=== PATIENT | female | born 1995 | race Caucasian/White ===

== ENCOUNTER 2022-06-28 22:05 | Emergency (ER) | payer BC, OTHER ==
--- NOTE | 2022-06-28 23:15 | ERPHSYRPT ---
- History of Present Illness Time Seen by Provider: 06/28/22 23:11 Historian: patient, family Exam Limitations: no limitations Patient Subjective Stated Complaint: Pt reports "about an hour ago when I was laying down I started getting chest tightness like my heart was going fast, it was getting hard to breath, and my body just kind of feels numb." Triage Nursing Assessment: Pt alert and oriented x3. No apparent respiratory distress, pt is talkative/pleasant/calm. Skin warm/dry/pale. Ambulated to ED cot without difficulty. Accompanied by her mother. Lung sounds clear throughout. S1 and S2 auscultated. Physician History: Hx confirmed by independent interview with Mom. Pt is 26 yr old female. Heart score <3 1 pt each for symptoms, and fam Hx. zero for normal EKG and Neg trop. No prior cardiac, hptn ( take propranolol for migraine not hptn. No hx DVT - Percs out for PE - no recent hosp or surgery normal HR. Chest clear with mid systolic click. Abd soft nontender without peritoneal signs or masses. Pt reports hx of possibly eating bad food and now has N and V no diaphoresis. and feels like starting diarrhea. discussed and ordered tests - EKG, CXR, CBC, CMP, Trop, UA and pt agrees after discussion of risks benefits and results discussed. Timing/Duration: today, hour(s) Activities at Onset: none Quality: cramping, fullness, pressure, tightness Location: substernal, central, epigastric Chest Pain Radiation: no radiation Severity of Pain-Max: moderate Severity of Pain-Current: moderate Modifying Factors: Improves With: eating Associated Symptoms: nausea, vomiting Prior Chest Pain/Cardiac Workup: no prior chest pain, no prior cardiac workup Nitro Today/Relief: no nitro taken today Aspirin Treatment Today: 81 mg x 4, provided by ED Allergies/Adverse Reactions: No Known Drug Allergies Allergy (Unverified 06/28/22 22:06) Home Medications: Baclofen See Rx Instructions .ROUTE .COMPLEX 06/28/22 [History] Miscellaneous Medication Order 1 tab PO DAILY 06/28/22 [History] Propranolol HCl 60 mg PO DAILY 06/28/22 [History] Hx Tetanus, Diphtheria Vaccination/Date Given: No Hx Influenza Vaccination/Date Given: No Hx Pneumococcal Vaccination/Date Given: No Travel Risk - International Travel Have you traveled outside of the country in past 3 weeks: No - Coronavirus Screening Are you exhibiting any of the following symptoms?: No Close contact with a COVID-19 positive Pt in past 14-21 Days: No - Vaccine Status Have you recieved a Covid-19 vaccination: Yes Social Welfare Administrator: [employer] - Review of Systems Constitutional: No Fever, No Chills Eyes: No Symptoms Ears, Nose, & Throat: No Symptoms Respiratory: No Cough, No Dyspnea Cardiac: Chest Pain, No Edema, No Syncope Abdominal/Gastrointestinal: Nausea, Vomiting, Diarrhea, No Abdominal Pain Genitourinary Symptoms: No Dysuria Musculoskeletal: No Back Pain, No Neck Pain Skin: No Rash Neurological: No Dizziness, No Focal Weakness, No Sensory Changes Psychological: No Symptoms Endocrine: No Symptoms Hematologic/Lymphatic: No Symptoms Immunological/Allergic: No Symptoms All Other Systems: Reviewed and Negative - Past Medical History Pertinent Past Medical History: Yes Neurological History: Migraines Other Medical History: Chiari malformation - Past Surgical History Past Surgical History: Yes Other Surgical History: wisdom teeth removal - Social History Smoking Status: Never smoker Exposure to second hand smoke: No Drug Use: none Patient Lives Alone: No - Female History Hx Last Menstrual Period: february 2022 Hx Now: No - Nursing Vital Signs Nursing Vital Signs: Initial Vital Signs Temperature 98.3 F 06/28/22 22:06 Pulse Rate 61 06/28/22 22:06 Respiratory Rate 15 06/28/22 22:06 Blood Pressure 128/83 06/28/22 22:06 O2 Sat by Pulse Oximetry 99 06/28/22 22:06 Pain Scale Pain Intensity 2 - Physical Exam General Appearance: no apparent distress, alert Eye Exam: PERRL/EOMI, eyes nml inspection Ears, Nose, Throat Exam: normal ENT inspection, moist mucous membranes Neck Exam: normal inspection, non-tender, supple, full range of motion Respiratory Exam: normal breath sounds, lungs clear, No respiratory distress Cardiovascular Exam: regular rate/rhythm, normal heart sounds, other (mid systolic click) Gastrointestinal/Abdomen Exam: soft, No tenderness, No mass Pelvic Exam: deferred Rectal Exam: deferred Back Exam: normal inspection, No CVA tenderness, No vertebral tenderness Extremity Exam: normal inspection, normal range of motion Neurologic Exam: alert, oriented x 3, cooperative, normal mood/affect, sensation nml, No motor deficits Skin Exam: normal color, warm, dry SpO2 Interpretation: normal SpO2: 99 O2 Delivery: Room Air - Course Nursing assessment & vital signs reviewed: Yes EKG Interpreted by Me: Sinus Rhythm, NORMAL AXIS, NORMAL INTERVALS, NORMAL QRS, NORMAL ST-T - Radiology Exams Chest X-ray Interpretation: Reviewed by me, No Pneumothorax, No Infiltrates, Other (calcified granulomata) Ordered Tests: Active Orders 24 hr Category Date Time Status EKG-ER Only STAT Care 06/28/22 23:18 Active IV Insertion STAT Care 06/28/22 23:18 Active CHEST 1 VIEW (PORTABLE) Stat Exams 06/28/22 23:18 Taken AMYLASE Stat Lab 06/28/22 23:20 Completed CBC W DIFF Stat Lab 06/28/22 23:20 Completed CMP Stat Lab 06/28/22 23:20 Completed HCG QUALITATIVE,SERUM Stat Lab 06/28/22 23:20 Completed LIPASE Stat Lab 06/28/22 23:20 Completed Lactic Acid Stat Lab 06/28/22 23:30 Completed TROPONIN Q4H Lab 06/28/22 23:20 Completed TROPONIN Q4H Lab 06/29/22 03:30 Ordered TROPONIN Q4H Lab 06/29/22 07:30 Ordered UA W/RFX UR CULTURE Stat Lab 06/28/22 23:24 Completed Medication Summary Discontinued Medications Generic Name Dose Route Start Last Admin Trade Name Freq PRN Reason Stop Dose Admin Famotidine 20 mg 06/28/22 23:18 06/28/22 23:30 Famotidine 20 Mg/1 Vial IV 06/28/22 23:19 20 mg STAT ONE Administration Famotidine Confirm 06/28/22 23:27 Famotidine 20 Mg/1 Vial Administered 06/28/22 23:28 Dose 20 mg IV .STK-MED ONE Sodium Chloride 1,000 mls @ 999 mls/hr 06/28/22 23:18 06/29/22 00:44 Sodium Chloride 0.9% 1000 Ml IV 06/29/22 00:18 Infused .Q1H1M STA Infusion Sodium Chloride Confirm 06/28/22 23:27 Sodium Chloride 0.9% 1000 Ml Administered 06/28/22 23:28 Dose 1,000 mls @ ud .ROUTE .STK-MED ONE Ondansetron HCl 4 mg 06/28/22 23:18 06/28/22 23:30 Ondansetron Hcl 4 Mg/2 Ml Vial IV 06/28/22 23:19 4 mg STAT ONE Administration Ondansetron HCl Confirm 06/28/22 23:27 Ondansetron Hcl 4 Mg/2 Ml Vial Administered 06/28/22 23:28 Dose 4 mg .ROUTE .STK-MED ONE Pantoprazole Sodium 40 mg 06/28/22 23:18 06/28/22 23:30 Pantoprazole 40 Mg Vial IV 06/28/22 23:19 40 mg STAT ONE Administration Pantoprazole Sodium Confirm 06/28/22 23:27 Pantoprazole 40 Mg Vial Administered 06/28/22 23:28 Dose 40 mg IV .STK-MED ONE Lab/Rad Data: Laboratory Result Diagrams 06/28/22 23:20 06/28/22 23:20 Laboratory Results 06/28/22 06/28/22 06/28/22 Range/Units 23:30 23:24 23:20 WBC (4.0-10.5) x10^3/uL RBC (4.1-5.4) x10^6/uL Hgb (12.0-16.0) g/dL Hct (35-47) % MCV (78-100) fL MCH (26-32) pg MCHC (32-36) g/dL RDW (11.5-14.0) % Plt Count (150-450) x10^3/uL MPV (7.5-11.0) fL Gran % (36.0-66.0) % Immature Gran % (Auto) (0.00-0.4) % Nucleat RBC Rel Count (0.00-0.1) % Eos # (Auto) (0-0.5) x10^3/uL Immature Gran # (Auto) (0.00-0.03) x10^3u/L Absolute Lymphs (auto) (1.0-4.6) x10^3/uL Absolute Monos (auto) (0.0-1.3) x10^3/uL Absolute Nucleated RBC (0.00-0.01) x10^3u/L Lymphocytes % (24.0-44.0) % Monocytes % (0.0-12.0) % Eosinophils % (0.00-5.0) % Basophils % (0.0-0.4) % Absolute Granulocytes (1.4-6.9) x10^3/uL Basophils # (0-0.4) x10^3/uL Sodium (137-145) mmol/L Potassium (3.5-5.1) mmol/L Chloride (98-107) mmol/L Carbon Dioxide (22-30) mmol/L Anion Gap (5-15) MEQ/L BUN (7-17) mg/dL Creatinine (0.52-1.04) mg/dL Estimated GFR ML/MIN Glucose (74-106) mg/dL Lactic Acid 1.1 (0.4-2.0) Calcium (8.4-10.2) mg/dL Total Bilirubin (0.2-1.3) mg/dL AST (14-36) U/L ALT (0-35) U/L Alkaline Phosphatase (38-126) U/L Troponin I (0.000-0.034) ng/mL Serum Total Protein (6.3-8.2) g/dL Albumin (3.5-5.0) g/dL Amylase (30-110) U/L Lipase (23-300) U/L Serum , Qual NEGATIVE (Negative) Urine Color Yellow (Yellow) Urine Appearance Clear (Clear) Urine pH 6.0 (4.6-8.0) Ur Specific Mcewen >=1.030 A (1.005-1.030) Urine Protein Trace A (Negative) Urine Glucose (UA) Negative (Negative) mg/dL Urine Ketones Trace A (Negative) Urine Blood Negative (Negative) Urine Nitrite Negative (Negative) Urine Bilirubin Negative (Negative) Urine Urobilinogen 1.0 A (0.2) mg/dL Ur Leukocyte Esterase Negative (Negative) U Hyaline Cast (Auto) NONE SEEN (0-2) /LPF Urine Microscopic RBC 0-2 (0-5) /HPF Urine Microscopic WBC 0-2 (0-5) /HPF Ur Epithelial Cells None Seen (None Seen) /HPF Urine Bacteria None Seen (None Seen) /HPF Urine Culture Reflexed NO (NO) 06/28/22 06/28/22 06/28/22 Range/Units 23:20 23:20 23:20 WBC 7.9 (4.0-10.5) x10^3/uL RBC 3.90 L (4.1-5.4) x10^6/uL Hgb 12.2 (12.0-16.0) g/dL Hct 36.6 (35-47) % MCV 93.8 (78-100) fL MCH 31.3 (26-32) pg MCHC 33.3 (32-36) g/dL RDW 12.6 (11.5-14.0) % Plt Count 307 (150-450) x10^3/uL MPV 10.2 (7.5-11.0) fL Gran % 35.2 L (36.0-66.0) % Immature Gran % (Auto) 0.1 (0.00-0.4) % Nucleat RBC Rel Count 0.0 (0.00-0.1) % Eos # (Auto) 0.64 H (0-0.5) x10^3/uL Immature Gran # (Auto) 0.01 (0.00-0.03) x10^3u/L Absolute Lymphs (auto) 3.83 (1.0-4.6) x10^3/uL Absolute Monos (auto) 0.56 (0.0-1.3) x10^3/uL Absolute Nucleated RBC 0.00 (0.00-0.01) x10^3u/L Lymphocytes % 48.6 H (24.0-44.0) % Monocytes % 7.1 (0.0-12.0) % Eosinophils % 8.1 H (0.00-5.0) % Basophils % 0.9 (0.0-0.4) % Absolute Granulocytes 2.77 (1.4-6.9) x10^3/uL Basophils # 0.07 (0-0.4) x10^3/uL Sodium 139 (137-145) mmol/L Potassium 3.9 (3.5-5.1) mmol/L Chloride 108 H (98-107) mmol/L Carbon Dioxide 25 (22-30) mmol/L Anion Gap 10.3 (5-15) MEQ/L BUN 10 (7-17) mg/dL Creatinine 0.65 (0.52-1.04) mg/dL Estimated GFR > 60.0 ML/MIN Glucose 113 H (74-106) mg/dL Lactic Acid (0.4-2.0) Calcium 8.9 (8.4-10.2) mg/dL Total Bilirubin 0.40 (0.2-1.3) mg/dL AST 25 (14-36) U/L ALT 24 (0-35) U/L Alkaline Phosphatase 46 (38-126) U/L Troponin I < 0.012 (0.000-0.034) ng/mL Serum Total Protein 6.9 (6.3-8.2) g/dL Albumin 3.9 (3.5-5.0) g/dL Amylase 92 (30-110) U/L Lipase 133 (23-300) U/L Serum , Qual (Negative) Urine Color (Yellow) Urine Appearance (Clear) Urine pH (4.6-8.0) Ur Specific Mcewen (1.005-1.030) Urine Protein (Negative) Urine Glucose (UA) (Negative) mg/dL Urine Ketones (Negative) Urine Blood (Negative) Urine Nitrite (Negative) Urine Bilirubin (Negative) Urine Urobilinogen (0.2) mg/dL Ur Leukocyte Esterase (Negative) U Hyaline Cast (Auto) (0-2) /LPF Urine Microscopic RBC (0-5) /HPF Urine Microscopic WBC (0-5) /HPF Ur Epithelial Cells (None Seen) /HPF Urine Bacteria (None Seen) /HPF Urine Culture Reflexed (NO) - Progress Progress: improved, re-examined Air Movement: good Progress Note: 06/29/22 01:08 chest pain resolved. Still having some GI gurgling now which probably explains the event best. discussed with pt results and that there still can be a cardiac condition or other undetected pathology including GI or vascular evolving and therefore the need to followup with her Dr. richard jones w/u and Tx as indicated. She and mom are most comfortable with this plan rather than any further w/u or obs in hospital at this time and that is most reasonable given the Hx and results and exam findings. Blood Culture(s) Obtained: No Antibiotics given: No Counseled pt/family regarding: lab results, diagnosis, need for follow-up, rad results Medical Desision Making - Independent Historian Additional History obtained from: Mother - Discussion of managment Reviewed:: Test results, Need for additional workup Agreed on:: Treatment plan, need for follow-up - Diagnostic Testing Diagnostic test were ordered, analyzed, and reviewed by me: Yes Radiological Interpretation: Reviewed by me - Risk of complications Low Risk: Low risk of morbidity from additional dx testing or treatment - Departure Departure Disposition: Home Clinical Impression: Chest pain - resolved, Gastro-intestinal symptoms with vomiting, Mid-systolic click, lung nodules or granulomas Condition: Good Critical Care Time: No Referrals: MAYA KING [Primary Care Provider] - Follow up/PCP as directed Instructions: Chest Pain (DC), Diarrhea in Adolescents and Adults, Nausea and Vomiting, Adult (DC), Food Poisoning (DC), Mitral Valve Prolapse Additional Instructions: We did not yet determine a precise cause for the chest pain or symptoms. Although the findings fit a gastrointestinal disturbance, there still could be other conditions developing which could log turner to be more serious, so follow- up with your DrTeo and return meantime if not improving, further chest pain or other concerns. You do have a type of mid systolic click with can be mitral valve prolapse to followup with your Dr. and is usually not a concern for most after workup. You have some spots on the lung which are probably benign granulomas but should also be followup with the final x-ray report with your Dr. Prescriptions: Ondansetron ODT 4 MG [Zofran Odt 4 mg] 4 mg PO Q6H PRN PRN #10 tablet PRN Reason: Nausea
[2022-06-28] MEDS ORDERED: Zofran 4 MG/2 ML VIAL IV ONE (23:18)
[2022-06-28] MEDS ORDERED: Sodium Chloride 0.9% 1000 ML 1,000 ML IV STA (23:18)
[2022-06-28] MEDS ORDERED: Pepcid 20 MG VIAL IV ONE ×2 (23:18→23:27)
[2022-06-28] MEDS ORDERED: PROTONIX 40 MG IV IV ONE ×2 (23:18→23:27)
[2022-06-28] MEDS ORDERED: Zofran 4 MG/2 ML VIAL ONE (23:27)
[2022-06-28] MEDS ORDERED: Sodium Chloride 0.9% 1000 ML 1,000 ML ONE (23:27)
[2022-06-28 23:30] LABS: Absolute Neutrophil Ct (ANC) 2.77 x10^3/uL (1.4-6.9); BASOPHIL % 0.9 % (0.0-0.4); Basophil (Absolute #) 0.07 x10^3/uL (0-0.4); Eosinophil % 8.1 % (0.00-5.0); Eosinophil (Absolute #) 0.64 x10^3/uL (0-0.5); Hematocrit 36.6 % (35-47); Hemoglobin 12.2 g/dL (12.0-16.0); IMMATURE GRAN # 0.01 x10^3u/L (0.00-0.03); IMMATURE GRAN % 0.1 % (0.00-0.4); Lymphocyte (Absolute #) 3.83 x10^3/uL (1.0-4.6); Lymphocytes % 48.6 % (24.0-44.0); Mean Cell Volume 93.8 fL (78-100); Mean Corpuscular Hemoglobin 31.3 pg (26-32); Mean Corpuscular Hgb Concent. 33.3 g/dL (32-36); Mean Platelet Volume 10.2 fL (7.5-11.0); Monocyte (Absolute #) 0.56 x10^3/uL (0.0-1.3); Monocytes % 7.1 % (0.0-12.0); Neutrophil % 35.2 % (36.0-66.0); Platelet Count 307 x10^3/uL (150-450); Red Cell Distribution Width 12.6 % (11.5-14.0); White Blood Count 7.9 x10^3/uL (4.0-10.5)
[2022-06-28 23:36] LABS: Appearance Clear (Clear); Bacteria None Seen /HPF (None Seen); Bilirubin Negative (Negative); Blood Negative (Negative); Epithelial Cells None Seen /HPF (None Seen); Glucose, Urine Negative (Negative); Hyaline Casts NONE SEEN /LPF (0-2); Ketones Trace (Negative); Leukocyte Esterase Negative (Negative); Nitrite Negative (Negative); Protein,Urine Dip Trace (Negative); RBC 0-2 /HPF (0-5); Specific Gravity >=1.030 (1.005-1.030); WBC 0-2 /HPF (0-5)
[2022-06-28 23:42] LABS: ADD URINE CULTURE? NO (NO)
[2022-06-28 23:44] LABS: ALBUMIN 3.9 g/dL (3.5-5.0); ALKALINE PHOSPHATASE 46 U/L (38-126); AMYLASE 92 U/L (30-110); ANION GAP 10.3 MEQ/L (5-15); BLOOD UREA NITROGEN 10 mg/dL (7-17); CHLORIDE 108 mmol/L (98-107); Calcium 8.9 mg/dL (8.4-10.2); Carbon Dioxide 25 mmol/L (22-30); Creatinine 1 0.65 mg/dL (0.52-1.04); EST GLOMERULAR FILTRATION RATE > 60.0 ML/MIN; Glucose 113 mg/dL (74-106); LIPASE 133 U/L (23-300); Potassium 3.9 mmol/L (3.5-5.1); SGOT/AST 25 U/L (14-36); SGPT/ALT 24 U/L (0-35); SODIUM 139 mmol/L (137-145); Total Protein 6.9 g/dL (6.3-8.2)
[2022-06-29 01:03] VITALS: BP 122/84; PULSE 64
[2022-06-29 01:13] VITALS: O2SAT 99
--- NOTE | 2022-06-29 08:43 | XRAY ---
Indication: Chest pain. Comparison: None Portable chest demonstrates normal heart, lungs, and bony thorax.
== END 2022-06-29 01:43 | disposition home or self-care (01) ==
LOC: ED 22:05
DX: R11.2 Nausea with vomiting, unspecified (principal); R07.9 Chest pain, unspecified; R01.2 Other cardiac sounds; R91.8 Other nonspecific abnormal finding of lung field; Z79.899 Other long term (current) drug therapy
CPT/HCPCS: 36000; 36415; 71045; 80053; 81001; 82150; 83605; 83690; 84484; 84703; 85025; 93005; 96374; 96375; 99284; J2405

== ENCOUNTER 2023-10-12 10:21 | Emergency (ER) | payer BC ==
[2023-10-12 10:36] VITALS: TEMP 98.4
--- NOTE | 2023-10-12 10:56 | ERPHSYRPT ---
- History of Present Illness Time Seen by Provider: 10/12/23 10:40 Source: patient Exam Limitations: no limitations Patient Subjective Stated Complaint: Pt c/o of chest pain, SOB, sharp stabbing pains in her feet and hands and neck all last night, pt thought that she might have been having a panic attack, today pt states that she has some pain in her medial chest, some SOB, some pain in her hands, and blurry vision Triage Nursing Assessment: Pt brought to the ER by her mother, vitals wnl, rates chest and hand pain as 5/10, pulses normal, skin n/w/d, walked into the ER with a stable gait and no assistance, no difficulty breathing noted, hx of panic attacks, doesn't appear to be in any distress, Physician History: Since about 14.5 hours ago pt has had a fast heart rate, chest pain, shortness of air, pain all over, intermittent nausea and a mild intermittent frontal headache. LBM was yesterday without blood. Pt also c/o a sore throat for the past few weeks. Allergies/Adverse Reactions: amitriptyline Allergy (Verified 10/12/23 10:36) Home Medications: Baclofen See Rx Instructions .ROUTE .COMPLEX 06/28/22 [History] Miscellaneous Medication Order 1 tab PO DAILY 06/28/22 [History] Propranolol HCl 60 mg PO DAILY 06/28/22 [History] Hx Tetanus, Diphtheria Vaccination/Date Given: No Hx Influenza Vaccination/Date Given: No Hx Pneumococcal Vaccination/Date Given: No Travel Risk - International Travel Have you traveled outside of the country in past 3 weeks: No - Emerging Infectious Disease Are you exhibiting symptoms associated with any current EIDs: No - Review of Systems Constitutional: No Fever, No Chills Ears, Nose, & Throat: Throat Pain Respiratory: Dyspnea, No Cough Cardiac: Chest Pain Abdominal/Gastrointestinal: Nausea, No Abdominal Pain, No Vomiting, No Diarrhea Genitourinary Symptoms: No Dysuria Neurological: Headache - Past Medical History Pertinent Past Medical History: Yes Neurological History: Migraines Other Medical History: Chiari malformation - Past Surgical History Past Surgical History: Yes Other Surgical History: wisdom teeth removal - Female History Hx Last Menstrual Period: 2 years ago Hx Now: No - Social History Smoking Status: Never smoker Exposure to second hand smoke: No Drug Use: marijuana Patient Lives Alone: No - Social Determinants of Health Will the patient participate in the screening: Yes Do you worry about a steady place to live?: No Do you have any problems with any of the following?: No known problems In the past 12 months,have you had to go without utilities?: No Transportation Issues: No Has anyone in your support network made you feel unsafe?: No Have you or anyone in your house had to go without enough: No - Nursing Vital Signs Nursing Vital Signs: Initial Vital Signs Temperature 98.4 F 10/12/23 10:28 Pulse Rate 64 10/12/23 10:28 Respiratory Rate 15 10/12/23 10:28 Blood Pressure 124/90 10/12/23 10:28 O2 Sat by Pulse Oximetry 98 10/12/23 10:28 Pain Scale Pain Intensity 5 - Physical Exam General Appearance: alert Eye Exam: eyes nml inspection Ears, Nose, Throat Exam: hearing grossly normal, pharyngeal erythema (mild) Neck Exam: normal inspection Respiratory Exam: lungs clear, airway intact Cardiovascular/Chest Exam: normal heart sounds Abdominal/Gastrointestinal Exam: normal bowel sounds Extremity Exam: No pedal edema Neurologic Exam: alert, cooperative Skin Exam: warm, dry SpO2 Interpretation: normal SpO2: 98 O2 Delivery: Room Air - Course Nursing assessment & vital signs reviewed: Yes EKG Interpreted by Me: RATE (64), Sinus Rhythm, NORMAL AXIS, Other (QTc = 409) - Radiology Exams Chest X-ray Interpretation: Discussed w/ radiologist (PA/lateral chest again demonstrates normal heart, lungs and bony thorax.) - CT Exams Chest CT Interpretation: Discussed w/radiologist (Normal CT chest PE exam.) Ordered Tests: Active Orders 24 hr Category Date Time Status EKG-ER Only STAT Care 10/12/23 10:52 Active IV Insertion STAT Care 10/12/23 10:52 Active CHEST 2 VIEWS (PA AND LAT) Stat Exams 10/12/23 10:53 Completed CHEST WITH CONTRAST [CT] Stat Exams 10/12/23 13:22 Completed AMYLASE Stat Lab 10/12/23 11:10 Completed CBC W DIFF Stat Lab 10/12/23 11:10 Completed CMP Stat Lab 10/12/23 11:10 Completed D-DIMER QUANTITATIVE Stat Lab 10/12/23 11:10 Completed HCG QUALITATIVE, SERUM Stat Lab 10/12/23 11:10 Completed LIPASE Stat Lab 10/12/23 11:10 Completed MAGNESIUM Stat Lab 10/12/23 11:10 Completed TROPONIN Q4H Lab 10/12/23 11:10 Completed TROPONIN Q4H Lab 10/12/23 14:30 Received TROPONIN Q4H Lab 10/12/23 19:00 Ordered UA W/RFX UR CULTURE Stat Lab 10/12/23 11:55 Completed Medication Summary Generic Name Dose Route Start Last Admin Trade Name [place] PRN Reason Stop Dose Admin Sodium Chloride 1,000 mls @ 100 mls/hr 10/12/23 11:00 10/12/23 11:03 Sodium Chloride 0.9% 1000 Ml IV 11/11/23 10:59 100 mls/hr .Q10H MARIBEL Administration Discontinued Medications Generic Name Dose Route Start Last Admin Trade Name Freq PRN Reason Stop Dose Admin Aspirin 324 mg 10/12/23 10:55 10/12/23 11:05 Aspirin 81 Mg Tab.Chew PO 10/12/23 10:56 324 mg STAT ONE Administration Aspirin Confirm 10/12/23 11:02 Aspirin 81 Mg Tab.Chew Administered 10/12/23 11:03 Dose 324 mg .ROUTE .STK-MED ONE Ondansetron HCl 4 mg 10/12/23 10:52 10/12/23 11:04 Ondansetron Hcl 4 Mg/2 Ml Vial IV 10/12/23 10:53 4 mg STAT ONE Administration Ondansetron HCl Confirm 10/12/23 11:02 Ondansetron Hcl 4 Mg/2 Ml Vial Administered 10/12/23 11:03 Dose 4 mg .ROUTE .STK-MED ONE Lab/Rad Data: Laboratory Result Diagrams 10/12/23 11:10 10/12/23 11:10 Laboratory Results 10/12/23 10/12/23 10/12/23 Range/Units 12:00 12:00 11:55 WBC (3.98-10.04) x10^3/uL RBC (3.93-5.22) x10^6/uL Hgb (11.2-15.7) g/dL Hct (34.1-44.9) % MCV (79.4-94.8) fL MCH (25.6-32.2) pg MCHC (32.2-35.5) g/dL RDW (11.7-14.4) % Plt Count (182-369) x10^3/uL MPV (9.4-12.3) fL Gran % (34.0-71.1) % Immature Gran % (Auto) (0.001-0.429) % Nucleat RBC Rel Count (0.00-0.2) % Eos # (Auto) (0.04-0.36) x10^3/uL Immature Gran # (Auto) (0.001-0.031) x10^3u/L Absolute Lymphs (auto) (1.18-3.74) x10^3/uL Absolute Monos (auto) (0.24-0.86) x10^3/uL Absolute Nucleated RBC (0.00-0.012) x10^3u/L Lymphocytes % (19.3-51.7) % Monocytes % (4.7-12.5) % Eosinophils % (0.7-5.8) % Basophils % (0.1-1.2) % Absolute Granulocytes (1.56-6.13) x10^3/uL Basophils # (0.01-0.08) x10^3/uL D-Dimer (0.0-0.50) mg/L Sodium (135-145) mmol/L Potassium (3.5-5.1) mmol/L Chloride (98-107) mmol/L Carbon Dioxide (22-30) mmol/L Anion Gap (5-15) MEQ/L BUN (7-17) mg/dL Creatinine (0.52-1.04) mg/dL Estimated GFR ML/MIN Glucose (74-106) mg/dL Calcium (8.4-10.2) mg/dL Magnesium (1.6-2.3) mg/dL Total Bilirubin (0.2-1.3) mg/dL AST (14-36) U/L ALT (0-35) U/L Alkaline Phosphatase (38-126) U/L Troponin I (0.000-0.033) ng/mL Serum Total Protein (6.3-8.2) g/dL Albumin (3.5-5.0) g/dL Amylase (30-110) U/L Lipase (23-300) U/L Serum HCG, Qual (NEGATIVE) Urine Color Yellow (Yellow) Urine Appearance Clear (Clear) Urine pH 7.0 (4.6-8.0) Ur Specific [place] 1.015 (1.005-1.030) Urine Protein Negative (Negative) Urine Glucose (UA) Negative (Negative) mg/dL Urine Ketones Negative (Negative) Urine Blood Negative (Negative) Urine Nitrite Negative (Negative) Urine Bilirubin Negative (Negative) Urine Urobilinogen 1.0 A (0.2) mg/dL Ur Leukocyte Esterase Negative (Negative) U Hyaline Cast (Auto) NONE SEEN (0-2) /LPF Urine Microscopic RBC 0-2 (0-5) /HPF Urine Microscopic WBC 0-2 (0-5) /HPF Ur Epithelial Cells None Seen (None Seen) /HPF Urine Bacteria None Seen (None Seen) /HPF Urine Culture Reflexed NO (NO) Influenza Type A Ag NEGATIVE (NEGATIVE) Influenza Type B Ag NEGATIVE (NEGATIVE) RSV (PCR) NEGATIVE (NEGATIVE) SARS-CoV-2 (PCR) NEGATIVE (NEGATIVE) Group A Strep Antibody NOT DETECTED (NEGATIVE) 10/12/23 10/12/23 10/12/23 Range/Units 11:10 11:10 11:10 WBC (3.98-10.04) x10^3/uL RBC (3.93-5.22) x10^6/uL Hgb (11.2-15.7) g/dL Hct (34.1-44.9) % MCV (79.4-94.8) fL MCH (25.6-32.2) pg MCHC (32.2-35.5) g/dL RDW (11.7-14.4) % Plt Count (182-369) x10^3/uL MPV (9.4-12.3) fL Gran % (34.0-71.1) % Immature Gran % (Auto) (0.001-0.429) % Nucleat RBC Rel Count (0.00-0.2) % Eos # (Auto) (0.04-0.36) x10^3/uL Immature Gran # (Auto) (0.001-0.031) x10^3u/L Absolute Lymphs (auto) (1.18-3.74) x10^3/uL Absolute Monos (auto) (0.24-0.86) x10^3/uL Absolute Nucleated RBC (0.00-0.012) x10^3u/L Lymphocytes % (19.3-51.7) % Monocytes % (4.7-12.5) % Eosinophils % (0.7-5.8) % Basophils % (0.1-1.2) % Absolute Granulocytes (1.56-6.13) x10^3/uL Basophils # (0.01-0.08) x10^3/uL D-Dimer 0.54 H (0.0-0.50) mg/L Sodium (135-145) mmol/L Potassium (3.5-5.1) mmol/L Chloride (98-107) mmol/L Carbon Dioxide (22-30) mmol/L Anion Gap (5-15) MEQ/L BUN (7-17) mg/dL Creatinine (0.52-1.04) mg/dL Estimated GFR ML/MIN Glucose (74-106) mg/dL Calcium (8.4-10.2) mg/dL Magnesium (1.6-2.3) mg/dL Total Bilirubin (0.2-1.3) mg/dL AST (14-36) U/L ALT (0-35) U/L Alkaline Phosphatase (38-126) U/L Troponin I < 0.012 (0.000-0.033) ng/mL Serum Total Protein (6.3-8.2) g/dL Albumin (3.5-5.0) g/dL Amylase (30-110) U/L Lipase (23-300) U/L Serum HCG, Qual NEGATIVE (NEGATIVE) Urine Color (Yellow) Urine Appearance (Clear) Urine pH (4.6-8.0) Ur Specific [place] (1.005-1.030) Urine Protein (Negative) Urine Glucose (UA) (Negative) mg/dL Urine Ketones (Negative) Urine Blood (Negative) Urine Nitrite (Negative) Urine Bilirubin (Negative) Urine Urobilinogen (0.2) mg/dL Ur Leukocyte Esterase (Negative) U Hyaline Cast (Auto) (0-2) /LPF Urine Microscopic RBC (0-5) /HPF Urine Microscopic WBC (0-5) /HPF Ur Epithelial Cells (None Seen) /HPF Urine Bacteria (None Seen) /HPF Urine Culture Reflexed (NO) Influenza Type A Ag (NEGATIVE) Influenza Type B Ag (NEGATIVE) RSV (PCR) (NEGATIVE) SARS-CoV-2 (PCR) (NEGATIVE) Group A Strep Antibody (NEGATIVE) 10/12/23 10/12/23 Range/Units 11:10 11:10 WBC 6.8 (3.98-10.04) x10^3/uL RBC 4.10 (3.93-5.22) x10^6/uL Hgb 12.6 (11.2-15.7) g/dL Hct 36.9 (34.1-44.9) % MCV 90.0 (79.4-94.8) fL MCH 30.7 (25.6-32.2) pg MCHC 34.1 (32.2-35.5) g/dL RDW 11.9 (11.7-14.4) % Plt Count 289 (182-369) x10^3/uL MPV 10.0 (9.4-12.3) fL Gran % 46.9 (34.0-71.1) % Immature Gran % (Auto) 0.1 (0.001-0.429) % Nucleat RBC Rel Count 0.0 (0.00-0.2) % Eos # (Auto) 0.56 H (0.04-0.36) x10^3/uL Immature Gran # (Auto) 0.01 (0.001-0.031) x10^3u/L Absolute Lymphs (auto) 2.44 (1.18-3.74) x10^3/uL Absolute Monos (auto) 0.52 (0.24-0.86) x10^3/uL Absolute Nucleated RBC 0.00 (0.00-0.012) x10^3u/L Lymphocytes % 36.0 (19.3-51.7) % Monocytes % 7.7 (4.7-12.5) % Eosinophils % 8.3 H (0.7-5.8) % Basophils % 1.0 (0.1-1.2) % Absolute Granulocytes 3.18 (1.56-6.13) x10^3/uL Basophils # 0.07 (0.01-0.08) x10^3/uL D-Dimer (0.0-0.50) mg/L Sodium 137 (135-145) mmol/L Potassium 4.1 (3.5-5.1) mmol/L Chloride 109 H (98-107) mmol/L Carbon Dioxide 21 L (22-30) mmol/L Anion Gap 12.0 (5-15) MEQ/L BUN 9 (7-17) mg/dL Creatinine 0.64 (0.52-1.04) mg/dL Estimated GFR 123.4 ML/MIN Glucose 92 (74-106) mg/dL Calcium 9.4 (8.4-10.2) mg/dL Magnesium 1.7 (1.6-2.3) mg/dL Total Bilirubin 0.90 (0.2-1.3) mg/dL AST 35 (14-36) U/L ALT 35 (0-35) U/L Alkaline Phosphatase 45 (38-126) U/L Troponin I (0.000-0.033) ng/mL Serum Total Protein 7.1 (6.3-8.2) g/dL Albumin 4.1 (3.5-5.0) g/dL Amylase 94 (30-110) U/L Lipase 83 (23-300) U/L Serum HCG, Qual (NEGATIVE) Urine Color (Yellow) Urine Appearance (Clear) Urine pH (4.6-8.0) Ur Specific [place] (1.005-1.030) Urine Protein (Negative) Urine Glucose (UA) (Negative) mg/dL Urine Ketones (Negative) Urine Blood (Negative) Urine Nitrite (Negative) Urine Bilirubin (Negative) Urine Urobilinogen (0.2) mg/dL Ur Leukocyte Esterase (Negative) U Hyaline Cast (Auto) (0-2) /LPF Urine Microscopic RBC (0-5) /HPF Urine Microscopic WBC (0-5) /HPF Ur Epithelial Cells (None Seen) /HPF Urine Bacteria (None Seen) /HPF Urine Culture Reflexed (NO) Influenza Type A Ag (NEGATIVE) Influenza Type B Ag (NEGATIVE) RSV (PCR) (NEGATIVE) SARS-CoV-2 (PCR) (NEGATIVE) Group A Strep Antibody (NEGATIVE) - Progress Progress: improved Counseled pt/family regarding: lab results, diagnosis, need for follow-up, rad results Medical Desision Making - Diagnostic Testing Diagnostic test were ordered, analyzed, and reviewed by me: Yes Radiological Interpretation: Discussed w/ radiologist - Departure Departure Disposition: Home Clinical Impression: Dyspnea, Chest pain Condition: Stable Critical Care Time: No Referrals: LORE KING NP [Primary Care Provider] - Follow up/PCP as directed Instructions: Chest Pain (DC) Additional Instructions: Follow up with private doctor tomorrow.
[2023-10-12] MEDS ORDERED: BABY ASPIRIN 81 MG CHEW ONE (11:02)
[2023-10-12] MEDS ORDERED: Sodium Chloride 0.9% 1000 ML 1,000 ML ONE (11:02)
[2023-10-12] MEDS ORDERED: Zofran 4 MG/2 ML VIAL ONE (11:02)
[2023-10-12] MEDS: Sodium Chloride 0.9% 1000 ML 1,000 ML IV SCH (11:03)
[2023-10-12] MEDS: Zofran 4 MG/2 ML VIAL IV ONE (11:04)
[2023-10-12] MEDS: BABY ASPIRIN 81 MG CHEW PO ONE (11:05)
[2023-10-12 11:15] LABS: Absolute Neutrophil Ct (ANC) 3.18 x10^3/uL (1.56-6.13); Basophil (Absolute #) 0.07 x10^3/uL (0.01-0.08); Eosinophil % 8.3 % (0.7-5.8); Eosinophil (Absolute #) 0.56 x10^3/uL (0.04-0.36); Hematocrit 36.9 % (34.1-44.9); Hemoglobin 12.6 g/dL (11.2-15.7); IMMATURE GRAN # 0.01 x10^3u/L (0.001-0.031); IMMATURE GRAN % 0.1 % (0.001-0.429); Lymphocyte (Absolute #) 2.44 x10^3/uL (1.18-3.74); Mean Corpuscular Hemoglobin 30.7 pg (25.6-32.2); Mean Corpuscular Hgb Concent. 34.1 g/dL (32.2-35.5); Monocyte (Absolute #) 0.52 x10^3/uL (0.24-0.86); Monocytes % 7.7 % (4.7-12.5); Neutrophil % 46.9 % (34.0-71.1); Platelet Count 289 x10^3/uL (182-369); Red Cell Distribution Width 11.9 % (11.7-14.4); White Blood Count 6.8 x10^3/uL (3.98-10.04)
[2023-10-12 11:27] LABS: ALBUMIN 4.1 g/dL (3.5-5.0); BILIRUBIN,TOTAL 0.9 mg/dL (0.2-1.3); Calcium 9.4 mg/dL (8.4-10.2); Creatinine 1 0.64 mg/dL (0.52-1.04); EST GLOMERULAR FILTRATION RATE 123.4 ML/MIN; MAGNESIUM 1.7 mg/dL (1.6-2.3); Potassium 4.1 mmol/L (3.5-5.1); Total Protein 7.1 g/dL (6.3-8.2)
[2023-10-12 11:47] LABS: HCG SERUM TEST NEGATIVE (NEGATIVE)
[2023-10-12 12:06] LABS: Appearance Clear (Clear); Bacteria None Seen /HPF (None Seen); Bilirubin Negative (Negative); Blood Negative (Negative); Epithelial Cells None Seen /HPF (None Seen); Glucose, Urine Negative (Negative); Hyaline Casts NONE SEEN /LPF (0-2); Ketones Negative (Negative); Leukocyte Esterase Negative (Negative); Nitrite Negative (Negative); Protein,Urine Dip Negative (Negative); RBC 0-2 /HPF (0-5); Specific Gravity 1.015 (1.005-1.030); WBC 0-2 /HPF (0-5)
[2023-10-12 12:10] LABS: ADD URINE CULTURE? NO (NO)
[2023-10-12 12:28] LABS: INFLUENZA A NEGATIVE (NEGATIVE); INFLUENZA B NEGATIVE (NEGATIVE); RESPIRATORY SYNCTIAL VIRUS NEGATIVE (NEGATIVE); SARS-CoV-2 Xpert Express NEGATIVE (NEGATIVE)
--- NOTE | 2023-10-12 12:28 | XRAY ---
Indication: Dyspnea. Comparison: June 28, 2022 PA/lateral chest again demonstrates normal heart, lungs, and bony thorax.
[2023-10-12 14:24] VITALS: BP 101/65; PULSE 77; RESP 15
--- NOTE | 2023-10-12 14:32 | XRAY ---
Indication: Chest pain. Elevated d-dimer. Multiple contiguous axial images obtained through the chest using 80 cc Isovue 370 contrast and PE protocol. Comparison: None Good opacification of the pulmonary arteries to include the lobar and segmental branches. No pulmonary embolus. Heart not enlarged. Aorta is normal in course and caliber. No pathologic mediastinal/hilar lymphadenopathy. Lungs inflated and clear. Bony thorax intact. Limited upper abdomen including adrenal glands are unremarkable. Impression: Normal CT chest PE exam.
[2023-10-12 15:09] VITALS: O2SAT 98
== END 2023-10-12 15:15 | disposition home or self-care (01) ==
LOC: ED 10:21
DX: R06.00 Dyspnea, unspecified (principal); R07.9 Chest pain, unspecified; R00.0 Tachycardia, unspecified; R11.0 Nausea; R51.9 Headache, unspecified; Z79.899 Other long term (current) drug therapy
CPT/HCPCS: 0241U; 36415; 71046; 71260; 80053; 81001; 82150; 83690; 83735; 84484; 84703; 85025; 85379; 87651; 93005; 96374; 99284; J2405; A9270-GY